=== PATIENT | male | born 1970 | race Hispanic/Latino ===

== ENCOUNTER 2018-12-15 18:44 | Emergency (ER) | payer SELFPAY ==
[2018-12-15 18:50] VITALS: BP 133/82; PULSE 80; TEMP 98; O2SAT 97
[2018-12-15] MEDS ORDERED: Oxycodone/Acetaminophen 5/325 mg Tab PO STA (19:54)
[2018-12-15] MEDS ORDERED: Oxycodone/Acetaminophen 5/325 mg Tab ONE (20:05)
--- NOTE | 2018-12-15 22:03 | C.PDOC ---
History Of Present Illness 48 year old male presents to the ED c/o headache, neck pain, lower back and left shoulder pain. Patient also reports he has 2 episodes of vomiting after the fall today. Patient denies LOC, visual changes, CP, SOB, rash, weakness, numbness. Time Seen by Provider: 12/15/18 19:25 Chief Complaint (Nursing): Back Pain History Per: Patient History/Exam Limitations: no limitations Onset/Duration Of Symptoms: Hrs Current Symptoms Are (Timing): Still Present Quality Of Discomfort: "Pain" Recent travel outside of the [place]: No Additional History Per: Patient Past Medical History Reviewed: Historical Data, Nursing Documentation, Vital Signs Vital Signs: Last Vital Signs Temp 98 F 12/15/18 18:49 Pulse 80 12/15/18 18:49 Resp 18 12/15/18 18:49 BP 133/82 12/15/18 18:49 Pulse Ox 97 12/15/18 18:49 - Medical History PMH: No Chronic Diseases Surgical History: No Surg Hx Family History: States: Unknown Family Hx - Social History Hx Alcohol Use: Yes Hx Substance Use: No - Immunization History Hx Tetanus Toxoid Vaccination: No Hx Influenza Vaccination: No Hx Pneumococcal Vaccination: No Review Of Systems Constitutional: Negative for: Fever, Chills Eyes: Negative for: Vision Change Cardiovascular: Negative for: Chest Pain, Palpitations Respiratory: Negative for: Shortness of Breath Gastrointestinal: Positive for: Vomiting. Negative for: Nausea, Abdominal Pain Musculoskeletal: Positive for: Neck Pain, Shoulder Pain, Back Pain Skin: Negative for: Rash Neurological: Positive for: Headache. Negative for: Weakness, Numbness, Dizziness Physical Exam - Physical Exam Appears: Non-toxic, No Acute Distress Skin: Normal Color, Warm, Dry Head: Atraumatic, Normacephalic, No Tenderness Eye(s): bilateral: Normal Inspection, PERRL, EOMI Neck: Normal ROM, No Midline Cervical Tenderness, Supple Chest: Symmetrical Cardiovascular: Rhythm Regular Respiratory: Normal Breath Sounds, No Rales, No Rhonchi, No Wheezing Gastrointestinal/Abdominal: Soft, No Tenderness, No Guarding, No Rebound Back: No Vertebral Tenderness, No Paraspinal Tenderness Extremity: Normal ROM, No Tenderness, No Swelling Neurological/Psych: Oriented x3, Normal Speech, Normal Cognition Gait: Steady ED Course And Treatment O2 Sat by Pulse Oximetry: 97 (ON RA) Pulse Ox Interpretation: Normal - Other Rad Left shoulder X-Ray X-Ray: Interpreted by Me, Viewed By Me Interpretation: no fracture or dislocation LS spine X-Ray X-Ray: Interpreted by Me, Viewed By Me Interpretation: no fracture or dislocation - CT Scan/US CT head Other Rad Studies (CT/US): Read By Radiologist, Radiology Report Reviewed CT/US Interpretation: Name:ASHLYN AARON Exam Date:Dec 15, 2018 9:02:19 PM EST. Modality Type:CT\\SR. Description:CT - BRAIN WITH CORONAL AND SAGITTAL MPRS. Gender:M Laterality:Not applicable. :69 Referring Physician:Hanna Staton). EXAM: CT Head without Intravenous Contrast. CLINICAL HISTORY: HEADACHE,VOMITING. TECHNIQUE: Axial computed tomography images of the head/brain without intravenous contrast. 0.00 mGy-cm. COMPARISON: None provided. FINDINGS: BRAIN. No acute intraparenchymal hemorrhage. No mass lesion. No CT evidence for acute territorial infarct. No midline shift or extra-axial collections. A prominent cisterna magna is identified. VENTRICLES: No hydrocephalus. ORBITS: The orbits are unremarkable. SINUSES AND MASTOIDS: There is opacification of the left mastoid air cells and a few right mastoid air cells demonstrate air-fluid levels and opacification. These findings are consistent with bilateral mastoiditis; more pronounced on the left.The paranasal sinuses are clear. BONES: No fracture. SOFT TISSUES: Unremarkable. IMPRESSION: 1. No acute intracranial abnormality. 2. Evidence of bilateral mastoiditis; more pronounced on the left. . Electronically signed on Dec 15, 2018 9:48:09 PM EST by: Daniel Sow M.D., KEYLA Certified By ABR & CBCCT. Fellowship Trained MRI and CT Specialist. CT CSpine Other Rad Studies (CT/US): Read By Radiologist, Radiology Report Reviewed CT/US Interpretation: Name:ASHLYN AARON Exam Date:Dec 15, 2018 9:04:35 PM EST. Modality Type:CT\\SR. Description:CT - CERVICAL SPINE WITH CORONAL AND SAGITTAL MPRS. Gender:M Laterality:Not applicable. :69 Referring Physician:Hanna Staton). EXAM: CT Cervical Spine Without IV contrast. CLINICAL HISTORY: NECK PAIN. S/P FALL. TECHNIQUE: Axial computed tomography images of the cervical spine without intravenous contrast. Sagittal and coronal reformatted images were generated. COMPARISON: None provided. FINDINGS: ALIGNMENT: Bony alignment is anatomic. DEGENERATIVE CHANGES: No significant canal stenosis or neural foraminal narrowing evident. Some advanced left exit foramen encroachment is noted at C5- 6. Mild degenerative disc disease is noted at C5-6, C6-7, C7-T1. Marginal osteophytic spurring arises from the C5-T1 vertebrae. Moderate degenerative arthritis is noted within the atlanto-dens interval. Some degenerative arthritis is seen within the bilateral uncovertebral facet articulations at C5-6,. C6-7. SOFT TISSUES: The prevertebral soft tissues are within normal limits. BONES: No acute fracture or aggressive appearing osseous lesion. MASTOIDS: There is evidence of bilateral mastoiditis again noted; more pronounced on the left. IMPRESSION: 1. No acute cervical spine abnormality. 2. Evidence of degenerative disc disease at C5-6, C6-7, C7-T1. 3. Advanced left exit foramen encroachment at C5-6. 4. 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 5. Some bilateral uncovertebral facet arthropathy at C5-6, C6- 7. 6. Bilateral mastoiditis; more pronounced on the left. . Electronically signed on Dec 15, 2018 9:48:52 PM EST by: Daniel Sow M.D., KEYLA Certified By ABR & CBCCT. Fellowship Trained MRI and CT Specialist. Progress Note: Plan: - CT head. - CT C spine. - LS spine X-Ray. - Left shoulder X-Ray. - Percocet 1 tab PO. Patient's imaging results were discussed with patient. Patient reports feeling better after medication was given. Patient was advised to follow up with clinic/PMD for further evaluation. Disposition - Disposition Referrals: [facility] [Outside] Disposition: HOME/ ROUTINE Disposition Time: 22:01 Condition: GOOD Additional Instructions: Follow up with PMD/ Clinic and Neurologist within 2-3 days. Return to ED if feel worse. Prescriptions: oxyCODONE/Acetaminophen [Percocet 5/325 mg Tab] 1 tab PO QID PRN #10 tab PRN Reason: Pain Instructions: Low Back Pain in Adults, Closed Head Injury, Neck Sprain (DC), Shoulder Pain (DC) Forms: [facility] (Amharic), Work Excuse - Clinical Impression Clinical Impression: Head injury, Contusion of back, Contusion of shoulder, Contusion of neck - PA / [employer]GR[employer] DIRECTOR / Resident Statement MD/DO has reviewed & agrees with the documentation as recorded. - Scribe Statement The provider has reviewed the documentation as recorded by the Scribe Nj Ferraro All medical record entries made by the Charissaibpatsy were at my direction and personally dictated by me. I have reviewed the chart and agree that the record accurately reflects my personal performance of the history, physical exam, medical decision making, and the department course for this patient. I have also personally directed, reviewed, and agree with the discharge instructions and disposition.
[2018-12-15 22:11] VITALS: RESP 20
--- NOTE | 2018-12-16 08:07 | CT ---
Date of service: 12/15/2018 PROCEDURE: CT HEAD WITHOUT CONTRAST. HISTORY: fall COMPARISON: None available. TECHNIQUE: Axial computed tomography images were obtained through the head/brain without intravenous contrast. Radiation dose: Total exam DLP = 1158.87 mGy-cm. This CT exam was performed using one or more of the following dose reduction techniques: Automated exposure control, adjustment of the mA and/or kV according to patient size, and/or use of iterative reconstruction technique. FINDINGS: HEMORRHAGE: No intracranial hemorrhage. BRAIN: No mass effect or edema. No atrophy or chronic microvascular ischemic changes. VENTRICLES: Unremarkable. No hydrocephalus. CALVARIUM: Unremarkable. PARANASAL SINUSES: Unremarkable as visualized. No significant inflammatory changes. MASTOID AIR CELLS: There is almost complete opacification of left mastoid and middle ear and partial opacification of the right mastoid suggestive of mastoiditis OTHER FINDINGS: . IMPRESSION: No evidence of acute intracranial hemorrhage mass effect or midline shift. Bilateral mastoid effusion more prominent on the left. Correlate clinically for mastoiditis. Preliminary report contains concordant findings was submitted by [facility] Radiology.
--- NOTE | 2018-12-16 12:50 | CT ---
Date of service: 12/15/2018 PROCEDURE: CT Cervical Spine without contrast HISTORY: fall COMPARISON: None available. TECHNIQUE: Axial computed tomography images were obtained of the cervical spine without the use of intravenous contrast. Coronal and sagittal reformatted images were created and reviewed. Radiation dose: Total exam DLP = 531.92 mGy-cm. This CT exam was performed using one or more of the following dose reduction techniques: Automated exposure control, adjustment of the mA and/or kV according to patient size, and/or use of iterative reconstruction technique. FINDINGS: VERTEBRAE: No fracture. Normal alignment. No destructive bony lesion. DISCS/SPINAL CANAL/NEURAL FORAMINA: There are moderate degenerative changes at the mid and lower cervical spine more prominent at C5-C6 and C6-C7. Moderate narrowing of the intervertebral disc is space at C5-C6 and moderate to severe narrowing of the disc is space at C6-C7. At C5-C6 there is a osteophyte disc protrusion which resulting in moderate spinal and moderate left neural foraminal narrowing. At C6-C7 there is moderate size osteophyte disc protrusion which also resulting in moderate spinal and bilateral neural foraminal narrowing. At C7-T1 there is small to moderate size osteophyte bulging disc resulting in [id number] spinal stenosis. PARASPINAL SOFT TISSUES: There are mildly enlarged lymph nodes in the neck noted. OTHER FINDINGS: Bilateral mastoid effusion noted larger on the right. IMPRESSION: No CT evidence of acute displaced fracture or subluxation. Moderate to mildly severe degenerative changes more prominent at the mid and lower lumbar spine. Posterior osteophyte bulging disc at C5-C6-C6-C7 and C7-T1 more prominent at C5-C6 which resulting in spinal and neural foraminal narrowing. If indicated further assessment by MRI of the brain may be obtained. Straightening and mild reversal of the normal lordosis of the cervical spine which could be due to muscle spasm. Preliminary report contains concordant findings was submitted by [facility] Radiology.
--- NOTE | 2018-12-16 13:10 | RAD ---
Date of service: 12/15/2018 PROCEDURE: Radiographs of the Left Shoulder HISTORY: fall COMPARISON: No prior. FINDINGS: BONES: Normal. No fracture. JOINTS: Normal. Glenohumeral and acromioclavicular joints preserved. No osteoarthritis. SOFT TISSUES: Normal. OTHER FINDINGS: None. IMPRESSION: No evidence of acute fracture or dislocation.
--- NOTE | 2018-12-18 11:29 | RAD ---
Date of service: 12/15/2018 PROCEDURE: Radiographs of the Lumbar Spine. HISTORY: fall COMPARISON: No prior. FINDINGS: BONES: Alignment appears satisfactory. No listhesis. No acute displaced fracture identified. Mild degenerative changes including small anterior osteophyte formation. DISC SPACES: Unremarkable. OTHER FINDINGS: None. IMPRESSION: Mild degenerative changes. No acute displaced fracture or subluxation identified.
== END 2018-12-15 22:10 | disposition home or self-care (01) ==
LOC: C.ER 18:44
DX: S09.90XA Unspecified injury of head, initial encounter (principal); S30.0XXA Contusion of lower back and pelvis, initial encounter; S40.012A Contusion of left shoulder, initial encounter; S10.93XA Contusion of unspecified part of neck, initial encounter; W19.XXXA Unspecified fall, initial encounter